=== PATIENT | female | born 2000 | race Asian ===

== ENCOUNTER 2021-06-24 12:54 | Emergency (ER) | payer SELFPAY | END 2021-06-24 13:32 | disposition left against medical advice (07) | LOC: ER 12:54 | DX: O26.891 Other specified pregnancy related conditions, first trimester (principal); R10.9 Unspecified abdominal pain; Z53.21 Procedure and treatment not carried out due to patient leaving prior to being seen by health care provider ==

== ENCOUNTER 2021-07-16 23:39 | Emergency (ER) | payer SELFPAY ==
[~2021-07-16] VITALS: Ht 152.4 cm; Wt 54.6 kg
[2021-07-17] MEDS ORDERED: ACETAMINOPHEN 500 MG TABLET PO ONE
[2021-07-17] MEDS ORDERED: IV NORMAL SALINE 1000ML BAG 1,000 ML IV ONE
[2021-07-17 00:22] LABS: BASO # 0.1 x10^3/uL (0.0-0.2); BASO % 1 % (0-3); EOS % 0 % (0-3); HEMATOCRIT 36.8 % (36.0-47.0); HEMOGLOBIN 11.6 g/dL (12.0-15.5); LYMPH # 1.6 x10^3/uL (1.0-4.8); LYMPH % 21 % (24-48); MEAN CORPUSCULAR HEMOGLOBIN 23 pg (25-35); MEAN CORPUSCULAR HGB CONC 32 g/dL (31-37); MEAN CORPUSCULAR VOLUME 74 fL (79-100); MONO # 0.4 x10^3/uL (0.0-1.1); MONO % 6 % (0-9); NEUT # 5.5 x10^3/uL (1.8-7.7); NEUT % 72 % (31-73); PLATELET COUNT 322 x10^3/uL (140-400); RED BLOOD COUNT 4.97 x10^6/uL (3.50-5.40); RED CELL DISTRIBUTION WIDTH 14.6 % (11.5-14.5); WHITE BLOOD COUNT 7.6 x10^3/uL (4.0-11.0)
[2021-07-17 00:30] LABS: CALCIUM 8.9 mg/dL (8.5-10.1); CREATININE 0.7 mg/dL (0.6-1.0); GFR 106.7; POTASSIUM 3.6 mmol/L (3.5-5.1)
[2021-07-17 00:35] LABS: ALBUMIN 4.1 g/dL (3.4-5.0); TOTAL BILIRUBIN 0.4 mg/dL (0.2-1.0); TOTAL PROTEIN 8.4 g/dL (6.4-8.2)
[2021-07-17 01:20] VITALS: BP 121/81
--- NOTE | 2021-07-17 01:35 | PHYS DOC ---
Past Medical History Past Surgical History: No Surgical History Smoking Status: Never Smoker Alcohol Use: None Adult General Chief Complaint Chief Complaint: FLANK PAIN HPI HPI The patient is a 21-year-old female who is otherwise healthy. She presents for evaluation of left flank discomfort with onset suddenly while she was sitting down at home prior to arrival. Discomfort radiates to the right flank to a degree, intermittently. Severity 7 out of 10 at present. Symptoms occur in the setting of what patient describes as a positive home test and a test that was positive in a clinic in [facility] last month. She has not had an ultrasound confirmatory of an intrauterine and has not followed up with OB per her report. This would be her first . Last menstrual period about 2 months ago per patient. Patient felt well before the onset of symptoms this evening. No associated fevers, upper respiratory congestion/rhinorrhea, cough, sore throat, shortness of breath or chest pain of any kind, abdominal pain of any kind, midline back pain, dysuria, hematuria, polyuria or oliguria, vaginal discharge or bleeding, changes in bowel habits. Vital signs are appropriate here and the patient is in no acute distress. No therapy for symptoms prior to arrival. Review of Systems Review of Systems A 12 point review of systems was completed and was negative except where noted in HPI above. Current Medications Current Medications Current Medications Medications (Trade) Dose Ordered Sig/Kami Start Time Stop Time Status Last Admin Dose Admin Acetaminophen (Tylenol) 1,000 mg 1X ONCE 07/17/21 00:00 07/17/21 00:01 DC 07/17/21 00:12 1,000 MG Sodium Chloride 1,000 ml @ 1,000 mls/hr 1X ONCE 07/17/21 00:00 07/17/21 00:59 DC 07/17/21 00:11 1,000 MLS/HR Allergies Allergies Allergies Coded Allergies Type Severity Reaction Last Updated Verified No Known Drug Allergies 07/16/21 No Physical Exam Physical Exam 21-year-old female appearing nontoxic and in no acute distress. Head is n ormocephalic and atraumatic. Neck is supple and nontender. Oropharynx is moist. Lungs are clear to auscultation at all stations. There is a normal S1 and S2 without rubs or gallops and capillary refill is appropriate, less than 2 seconds globally. Abdomen is soft, nontender and nondistended. Mild tenderness to palpation over the left flank; no CVA tenderness to percussion there or over the right flank. No midline or bilateral paraspinal tenderness on examination of the back. Skin is warm and dry without cyanosis, clubbing or edema. Psychiatrically, the patient demonstrates appropriate mood and affect and is alert. Current Patient Data Vital Signs Vital Signs Date Time Temp Pulse Resp B/P (MAP) Pulse Ox O2 Delivery O2 Flow Rate FiO2 07/16/21 23:40 97.3 92 17 125/72 (89) 100 Room Air 97.3 Lab Values Laboratory Tests Test 07/17/21 00:11 White Blood Count 7.6 x10^3/uL (4.0-11.0) Red Blood Count 4.97 x10^6/uL (3.50-5.40) Hemoglobin 11.6 g/dL (12.0-15.5) L Hematocrit 36.8 % (36.0-47.0) Mean Corpuscular Volume 74 fL (79-100) L Mean Corpuscular Hemoglobin 23 pg (25-35) L Mean Corpuscular Hemoglobin Concent 32 g/dL (31-37) Red Cell Distribution Width 14.6 % (11.5-14.5) H Platelet Count 322 x10^3/uL (140-400) Neutrophils (%) (Auto) 72 % (31-73) Lymphocytes (%) (Auto) 21 % (24-48) L Monocytes (%) (Auto) 6 % (0-9) Eosinophils (%) (Auto) 0 % (0-3) Basophils (%) (Auto) 1 % (0-3) Neutrophils # (Auto) 5.5 x10^3/uL (1.8-7.7) Lymphocytes # (Auto) 1.6 x10^3/uL (1.0-4.8) Monocytes # (Auto) 0.4 x10^3/uL (0.0-1.1) Eosinophils # (Auto) 0.0 x10^3/uL (0.0-0.7) Basophils # (Auto) 0.1 x10^3/uL (0.0-0.2) Maternal Serum HCG Beta Subunit 1 mIU/mL (0-5) Sodium Level 140 mmol/L (136-145) Potassium Level 3.6 mmol/L (3.5-5.1) Chloride Level 104 mmol/L (98-107) Carbon Dioxide Level 24 mmol/L (21-32) Anion Gap 12 (6-14) Blood Urea Nitrogen 14 mg/dL (7-20) Creatinine 0.7 mg/dL (0.6-1.0) Estimated GFR (Cockcroft-Gault) 106.7 BUN/Creatinine Ratio 20 (6-20) Glucose Level 88 mg/dL (70-99) Calcium Level 8.9 mg/dL (8.5-10.1) Total Bilirubin 0.4 mg/dL (0.2-1.0) Aspartate Amino Transferase (AST) 18 U/L (15-37) Alanine Aminotransferase (ALT) 21 U/L (14-59) Alkaline Phosphatase 59 U/L (46-116) Total Protein 8.4 g/dL (6.4-8.2) H Albumin 4.1 g/dL (3.4-5.0) Albumin/Globulin Ratio 1.0 (1.0-1.7) Lipase 126 U/L (73-393) Laboratory Tests 07/17/21 00:11 Laboratory Tests 07/17/21 00:11 EKG EKG [] Radiology/Procedures Radiology/Procedures [] Course & Med Decision Making Course & Med Decision Making Substantial concern for ruptured ectopic given initial history of positive test and sudden onset flank pain. Stat pelvic ultrasound obtained which is entirely within normal limits per vending machine technician report. Quantitative hormone level subsequently has returned negative; patient is not . Labs unremarkable. Awaiting urinalysis and will then reassess the patient to determine next steps. 0145: Patient informed nursing that she desires to leave the hospital right now to go home as she is tired. Went to bedside where she states her left flank discomfort is a good deal better but still present. 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 Offered a cab voucher so that she can go home by cab when her evaluation is complete and she states she prefers to go home with her now. Counseled her that if she chooses to leave now against advice that she is at risk for decompensation, loss of current lifestyle, permanent disability and even due to missed pathology. She understands these risks and is able to restate them in her own words and agrees to be wholly and solely responsible for them in their entirety. She understands that if she changes her mind and wants to be further evaluated for her discomfort that she may return at any time and we will be more than happy to take care of her. Even though leaving against advice is not ideal, I have endeavored to provide her with an appropriate follow-up plan. I have counseled her to follow-up with her primary doctor in the next 1 to 2 days. She understands that if she feels worse instead of better or develops other new symptoms of concern that she should return immediately for reevaluation. All questions are answered. Dragon Disclaimer Candace Disclaimer This electronic medical record was generated, in whole or in part, using a voice recognition dictation system. Departure Departure Impression: Primary Impression: Acute left flank pain Disposition: LEFT AGAINST MEDICAL ADVICE Condition: STABLE Patient Instructions: Flank Pain Additional Instructions: As we discussed at some length, you are choosing to leave the hospital against my advice before your evaluation here in the emergency room is complete. If you change your mind and want to be further checked out for your pain, please feel free to return at any time and we will be happy to help you and to take care of you. Follow-up with your primary doctor in the next 1 to 2 days for a reevaluation of your symptoms and a discussion of next best steps in care. Return to the emergency department right away for worsening symptoms of any kind or with any other new symptoms of concern. JAMAL NAGEL MD Jul 17, 2021 01:35
--- NOTE | 2021-07-17 01:40 | RAD ---
EXAM: ULTRASOUND PELVIS 07/17/2021 INDICATION: Bilateral flank pain. COMPARISON: None available. TECHNIQUE: Transabdominal and transvaginal sonography was performed. FINDINGS: Uterus measures 6.0 x 5.6 x 2.4 cm. No focal uterine mass. Endometrial complex normal in thickness fo r age measuring 2 mm. Right ovary measures 2.8 x 3.2 x 2.3 cm. Left ovary measures 2.9 x 3.3 x 2.1 cm. Normal color flow to both ovaries. No apparent adnexal mass or free fluid. There are normal-appearing follicles. IMPRESSION: Negative pelvic ultrasound. Electronically signed by: Dillan Messina MD (07/17/2021 1:38 AM) JIMMY
== END 2021-07-17 01:52 | disposition left against medical advice (07) ==
LOC: ER 23:39
DX: O26.891 Other specified pregnancy related conditions, first trimester (principal); R10.9 Unspecified abdominal pain; Z3A.00 Weeks of gestation of pregnancy not specified
CPT/HCPCS: 36415; 76830; 76856; 80053; 83690; 84702; 85025; 86850; 86900; 86901; 96360; 96361; 99285; J7030; 99284